=== PATIENT | female | born 1955 | race Caucasian/White ===

== ENCOUNTER 2020-10-29 06:00 | Day surgery (SDC) | payer MEDICARE, BC, SELFPAY ==
[2020-10-29] VITALS (9 sets, daily range): BP systolic 113–146; BP diastolic 60–94; PULSE 57–65; RESP 16–20; TEMP 36.1–37; O2SAT 94–98; BMI 33.8
[2020-10-29] MEDS: Lactated Ringers 1,000 ML 100 ML IV (06:55)
--- NOTE | 2020-10-29 07:00 | RAD_ITS ---
STUDY: X-RAY - RIGHT ANKLE REASON FOR EXAM: ORIF right ankle fracture. TECHNIQUE: 16 intraoperative images of the ankle. COMPARISON: None. FINDINGS: There is an intramedullary pin in the distal fibula and 2 orthopedic screws in the medial malleolus. 419 seconds of fluoroscopy time was used. Electronically Signed: King Almeida MD at 11:57 EST Tel , Service support , RAD/Ankle min 3 Views
[2020-10-29] MEDS: Cefazolin 2 GM in 0.9% Normal Saline 100 ML IV (07:44)
--- NOTE | 2020-10-29 10:05 | RAD_ITS ---
STUDY: X-RAY - RIGHT ANKLE REASON FOR EXAM: Postop right ankle fracture. TECHNIQUE: 3 view(s) of the ankle. COMPARISON: Intraoperative images obtained earlier the same day. FINDINGS: There is an orthopedic pin transfixing a distal fibular fracture in anatomical alignment and position. There are 2 orthopedic screws transfixing a medial malleolar fracture in anatomical alignment and position. Normal tibiotalar articulation and ankle mortise. There is a small plantar calcaneal enthesophyte. The visualized subtalar, talonavicular, calcaneocuboid and tarsal articulations are normal. There is an overlying cast. RAD/Ankle min 3 Views IMPRESSION: Status post ORIF of distal fibular and medial malleolar fractures. Electronically Signed: King Almeida MD at 15:14 EST Tel , Service support ,
--- NOTE | 2020-10-29 10:08 | PCM.DC.ORTHO ---
Discharge Diet: Light diet - advance as tolerated Discharge Activity: May Not Drive, May Not Shower, Use Walker, Use Crutches Weight Bearing Status: No weight bearing Keep extremity elevated above heart level: Right Leg Additional Activity Instructions:: 1. Keep dressing to right leg clean, dry, intact. Do not get dressing wet. Do not remove dressing. If get dressing wet, call office for further instruction. I recommend sponge bathing at this time. 2. Ice around right knee 30 minutes every hour as needed for the pain. 3. Elevate right foot above level of heart as often as possible until further instructed. 4. Begin taking doxycycline 100 mg starting tomorrow, October 30, 2020 twice a day as instructed on bottle. 5. Begin taking Aspirin 81 mg starting tomorrow, October 30, 2020 twice a day. 6. Begin taking Eads/percocet as needed starting today, October 29, 2020. Use Zofran prescription as needed for nausea. You may supplement pain medication with Tylenol (acetaminophen). Do not take more than 3000mg of acetaminophen in a 24 hour period. 7. No walking/standin on right foot. Use crutches/wheelchair/knee scooter for assistance. 8. Follow up with Dr. Cardenas on 11/04/2020 as previously scheduled. Call your doctor if your incision/area has: Sudden Increased Bleeding, Increased Pain/ Swelling Call your doctor if you observe: Fever of 101 or Higher, Coldness, Increased Pain, Inability to have a bowel movement, Shortness of breath, Chest pain, Increased palpitations (irregular heartbeat), Calf discomfort, Uncontrolled pain Cleanse incision/area with: Keep Dressing Clean & Dry Allergies/Adverse Reactions: Allergies amlodipine Allergy (Verified 10/23/20 09:02) Itching pineapple Allergy (Verified 10/23/20 09:02) Swelling codeine Adverse Reaction (Verified 10/23/20 09:02) PT UNSURE OF REACTION morphine Adverse Reaction (Verified 10/23/20 09:02) PT UNSURE OF REACTION Medications to take at Discharge Albuterol Inhaler [Ventolin Hfa (SP)] 1 - 2 puff INHALATION Q4H PRN PRN 10/23/20 Fluticasone/Vilanterol [Breo Ellipta 200-25 Mcg INH] 1 ea IH DAILY 10/23/20 Hydrochlorothiazide [Hctz] 25 mg PO DAILY 10/23/20 Orders to be completed after discharge: Partial Thromboplast Time Time Frame: 2 Days, Facility: [facility], Location: Laboratory Prothrombin Time w/INR Time Frame: 2 Days, Facility: [facility], Location: Laboratory Primary Care Physician: Orion Waite MD [Primary Care Provider] - Test Results: Test results from this visit will be discussed in further detail at your follow-up appointment, if applicable. Please Follow Up With: Karl Cardenas DPM When: on 11/04/2020 as previously scheduled Proposed Discharge Date: 10/29/20
--- NOTE | 2020-10-29 10:12 | PCM.OPRPT ---
Problem List (1) Fracture of ankle, trimalleolar, right, closed Status: Acute Qualifiers: Encounter type: initial encounter Qualified Code(s): S82.851A - Displaced trimalleolar fracture of right lower leg, initial encounter for closed fracture Report of Operation Date of Procedure: 10/29/20 Pre-Operative Diagnosis: 1. Right ankle trimalleolar fracture, closed Post-Operative Diagnosis: 1. Right ankle trimalleolar fracture, closed Surgery/Procedure Performed:: open reduction with internal fixation right ankle trimalleolar fracture Description of Surgical Findings:: Consistent with diagnosis. Reduction of deformities achieved and held with internal fixation. paper bag machine operator: Cristina TROY Type of Anesthesia:: Block,Regional - a popliteal and adductor canal block given to right lower extremity pre-operatively, Spinal/Supplemental Anesthesiologist: Jovi Early Special Medications: 2 g of Ancef given preoperatively Specimen's removed: None Drains: None Estimated Blood Loss (mL): 10 Description of Procedure: Pathology: None Anesthesia: Spinal and MAC with a popliteal and adductor canal block in the right lower extremity preoperatively. Hemostasis: Pneumatic thigh tourniquet placed at the level of the right thigh at 275 mmHg for 84 minutes Estimated blood loss: 10 mL Materials: 1. Arthrex 3.0 mm x 130 mm left fibula lock nail. 2. Arthrex 2.7 x 14 mm cortical screws. 3. Arthrex 4.0 x 40 mm cancellous short thread screw x 2 5. Size 0 Vicryl. 6. Size 2-0 Vicryl. 7. Size 3-0 Vicryl. 8. Size 3-0 nylon Genitals: None Complications: Due to increased postoperative complications with a bigger incision and her bones not holding the internal fixation, it was determined that the intramedullary nail of the fibula would be used. Patient: Stable Indications: Patient is a 65-year-old female with multiple medical problems who suffered a right ankle injury while at home on the evening of October 15, 2020. After verbal questioning, patient states that she was walking down her stairs, and missed the last step. She states that she landed on her right ankle and it twisted inward. Patient felt immediate pain in her right ankle, and did notice a deformity. She was unable to bear weight after the injury. Patient presented to the emergency department after the injury for further evaluation where she was instructed that she suffered a right ankle trimalleolar fracture. Closed reduction was then performed, patient was then placed in a posterior splint. Patient initially followed up with me on Wednesday, October 21, 2020 for further evaluation. At that time, significant edema was noted around the right ankle. I discussed with the patient that she does have a right ankle trimalleolar fracture with ankle joint dislocation and ligamentous injury. I discussed all these terms in detail. I discussed conservative and surgical interventions for this. Conservative therapy would include casting and a below the knee cast. I discussed the risks and benefits of conservative therapy, including but not limited to delayed or nonhealing bone, DVT, early onset arthritis, continued pain, decreased function of limb. I discussed surgical intervention with the patient, which would include an open reduction with internal fixation of the right ankle trimalleolar fracture. I discussed the risks and benefits of surgical intervention, including but not limited to delayed or nonhealing wounds, delayed or nonhealing bone, DVT, infection, decreased function of limb, continued pain, damage to surrounding structures, loss of limb, loss of life. All the patient questions were answered to her satisfaction and all of her concerns were addressed. No guarantees were made as to the outcome of the procedure. Patient understood all aspects of the procedure. Due to the deformity that was present, I recommended surgical intervention. Patient was agreeable to surgical intervention at that time. After reviewing the soft tissue of the ankle, there was significant swelling with loss of skin lines. No fracture blisters were present. Due to the swelling that was present, I determined that the surgery would need to be delayed. A CT scan was ordered of right ankle for preoperative planning along with preoperative blood work, EKG, chest x-ray. I next saw the patient on 10/28/2020. At that time there was a significant reduction in swelling. I then showed the patient her x-rays along with her CT scan. I discussed conservative and surgical interventions for this once again, along with the risks and benefits. All the patient questions were answered to her satisfaction and all of her concerns were addressed. No guarantees were made as to the outcome of the procedure. Patient understood all aspects of the procedure. Due to the deformity that was present, I recommended surgical intervention. Patient was agreeable to surgical intervention at that time, and consent was then signed by the patient. Surgery was planned for today, October 29, 2020. Operative report: Before the patient was brought to the operating room, I discussed the risks and benefits of surgical intervention once gain. These include but not limited to delayed or nonhealing wounds, delayed or nonhealing bone, DVT, infection, decreased function of limb, continued pain, damage to surrounding structures, loss of limb, loss of life. All the patient questions were answered to her satisfaction and all of her concerns were addressed. No guarantees were made as to the outcome of the procedure. Patient understood all aspects of the procedure, and was agreeable to proceed with the surgical intervention. Before the patient was brought to the operating room, the anesthesiologist administered a popliteal and adductor canal block to the right lower extremity. Patient was then brought to the operating room and placed on the operating table in supine position. After a timeout, once general anesthesia was obtained and the anesthesiologist took control the airway and the IV access, all pressure points were well padded. Pre-operative Ancef 2 grams was administered. A well-padded pneumatic thigh tourniquet was placed the level of the right thigh. The right foot, ankle, leg were then scrubbed, prepped, draped in the usual sterile manner. At this time, radiograph evaluation was used to determine the distal tip of the lateral malleolus, level of the fibular fracture, distal tip of the medial malleolus, ankle joint line, syndesmosis line, and medial malleoli fracture. These were all marked on the patient. Next, the right lower extremity was elevated and exsanguinated via an Esmarch and inflation of the pneumatic thigh tourniquet was performed to 275 mmHg. Attention was then directed to the lateral aspect of the right fibula at the level of the fibular fracture. At this time, a linear longitudinal incision was made starting at the distal aspect of the level of the fibula fracture extending proximally to the proximal aspect of the fibular fracture. This incision was approximately 2 cm in length. This incision was deepened utilizing sharp and blunt dissection. Care was taken to retract all vital neural and vascular structures. All bleeders were cauterized and ligated as necessary. Next, a linear periosteal incision was made in line with the original skin incision. The periosteal and capsular structures were then reflected anteriorly and posteriorly, thus exposing the fibula fracture the operative site. At this time, a curette was used to remove any fibrous tissue contained within the surgical site. Surgical site was irrigated copious amounts of normal sterile saline. Next, a reduction was performed of the fibular fracture and this reduction was held via temporary fixation. Radiograph evaluation was then performed. The fibula fracture was noted to be reduced when compared to preoperative assessment. The fibula was noted to be out to length at this time, and the lateral ankle joint mortise was noted to be intact. Attention was then directed to a portion 2 cm distal to the distal tip of the lateral malleolus. At this time, live radiographic evaluation was used to insert the K wire for the intramedullary nail through the distal tip of the fibula extending through the midshaft of the fibula. Multiple radiographic views were used to determine the level of this K wire. Once adequate positioning of this K wire was had, a stab incision was made at the K-wire/skin junction and the reamer was used to perform reaming of the intramedullary canal of the fibula. Once adequate preparation was had of the medullary canal of the fibula, the Arthrex fibular nail was placed into the surgical site into the medullary canal of the fibula. Multiple radiographic views were used to determine exact positioning of the fibular nail. Once adequate positioning was had, this was held via temporary fixation. The proximal fibular nail was held in place via the tongs that were released in standard fashion. Stab incision were made for the distal screws, and the distal portion of the fibular nail was held utilizing the 2.7 cortical screws. Radiographic evaluation was performed to determine exact positioning of the screws and to make sure that they were contained within the fibular nail. Once adequate positioning of this nail was had, the bowman for the nail was removed along with temporary fixation of the fracture. Radiograph evaluation was then performed. The fibular nail was noted to be contained within the intramedullary canal of the fibula. It was noted to not be shifted and noted to hold the fibula fracture in the correct the reduced position. The distal cortical screws noted to be well contained within the fibular nail, and the proximal tongs are noted to be released. The fibula was noted to be out to length at this time. At this time, live radiograph evaluation was used to perform the cotton and hook test to evaluate the syndesmosis. No widening at the distal syndesmosis was noted, and this was deemed to be stable. It was determined that no fixation would be needed. The tibiofibular overlap was noted to be within normal limits. Attention was then directed to the medial aspect of the right ankle near the medial malleolus. At this time, a curvilinear incision was made starting at the level of the medial malleolus fracture extending distally and anteriorly to the distal tip of the medial malleolus. The incision was approximately 1.5 cm in length. This incision was deepened utilizing sharp and blunt dissection. Care was taken to retract all vital neural and vascular structures. All bleeders were cauterized and ligated as necessary. At this time, a portion of the deltoid ligament was incised in a similar fashion to the skin incision. The deltoid ligament was then reflected anteriorly and posteriorly, thus exposing the medial malleolus fracture at the operative site. At this time, reduction of the medial malleolus fracture was had and was held in place utilizing the K wires for the cannulated screw. Radiograph evaluation was then performed. The medial malleolus fracture was noted to be reduced when compared to preoperative assessment and the K wires were noted to be well contained within the medullary canal of the tibia. At this time, both of these K wires were drilled in standard fashion and a 4-0 by 40 mm and a 4-0 by 40 mm cannulated short thread screw was placed over the K wires and inserted in standard fixation. Of note during insertion of the screws was adequate compression of the medial malleolar fracture. Furthermore, no shifting of the medial malleolar fracture occurred during insertion of the screws. Once the screws were fully inserted, the K wire was then removed. Radiograph evaluation was then performed. The medial malleolus fracture was noted to be reduced when compared to preoperative assessment. At this time, radiograph evaluation was used to assess the posterior malleolus fracture. The posterior malleolus was noted to be reduced when compared to preoperative assessment. It was noted to be back in anatomical position. Furthermore, it appeared to be less than 25% of the articulating surface of the ankle. Due to this, it was determined that internal fixation would not be needed. Radiograph evaluation was used to assess the ankle joint once again. The fibula was noted to be out to length at this time and the fracture was noted to be reduced when compared to preoperative assessment. The intramedullary nail was noted to be contained within the fibula. The cotton and hook test were performed once again, and the syndesmosis was deemed stable at this time. The medial malleolus fracture was noted to be reduced when compared to preoperative assessment, and the hardware was noted to hold the medial malleolus fracture in the correct the reduced position. The ankle joint mortise was noted to be intact at this time. The posterior malleolus fracture was reduced. The fibula is noted to be out to length at this time. Each surgical site is irrigated with irrisept and a copious amounts normal sterile saline. The pneumatic thigh tourniquet was then released and a prompt hyperemic response noted to the entirety of the right lower extremity. For the medial surgical incision, the deltoid ligament was reapproximated and coapted utilizing size 0 Vicryl. The subcutaneous tissue was reapproximated and coapted utilizing size 2-0 Vicryl and 3-0 Vicryl. The skin was reapproximated and coapted utilizing size 3-0 nylon in a simple interrupted and horizontal mattress fashion. For the lateral surgical sites, the periosteal and capsular structures were reapproximated and coapted using size 0 vicryl and 2-0 vicryl. The subcutaneous tissues were reapproximated and coapted utilizing size 0 Vicryl, 2-0 Vicryl, 3-0 Vicryl. The skin was reapproximated and coapted utilizing size 3-0 nylon in a simple interrupted and horizontal mattress fashion. Each surgical site was then dressed with Betadine soaked gauze, and a dry sterile dressing consisting of 4 x 4 gauze, ABD pads, wrapped with Kerlix. The right foot and ankle were then wrapped with an Sanjay bandage. Next, a stockinette was placed over the right lower extremity. Cast padding was wrapped from the metatarsal heads extending proximally to the level just distal to the tibial tuberosity. A posterior splint was fashioned to the right lower extremity and was adhered to the right lower extremity utilizing Sanjay bandages. Care was taken to make sure the foot and ankle held in neutral position as the posterior splint dried. Neurovascular status was assessed at the end of the application indeed intact the right lower extremity. The patient tolerated anesthesia and procedure well and was transported to the PACU with vital signs stable and neurovascular status intact to right lower extremity. After period of postoperative monitoring, patient will be discharged home with written and oral instructions for wound care and follow-up. - Complications None - Admit VTE Documentation VTE Present on Admission: No - ASA 81mg BID starting 10/30/2020 for postoperative DVT prophylaxis VTE Mechan Device Prophylaxis: SCD's VTE Pharm Prophylaxis ordered?: Yes
== END 2020-10-29 14:29 | disposition home or self-care (01) ==
LOC: SDC 06:05 → AC 06:07
PROVIDERS: PCP Family Medicine; Referring Provider Podiatrist Foot & Ankle Surgery; Visit Provider Podiatrist Foot & Ankle Surgery
PROC: (CPT 27822; principal; 2020-10-29 07:10)
DX: S82.851A Displaced trimalleolar fracture of right lower leg, initial encounter for closed fracture (principal); W10.8XXA Fall (on) (from) other stairs and steps, initial encounter; Y93.01 Activity, walking, marching and hiking; Y92.008 Other place in unspecified non-institutional (private) residence as the place of occurrence of the external cause; J45.909 Unspecified asthma, uncomplicated; R60.0 Localized edema; I10 Essential (primary) hypertension; Z79.899 Other long term (current) drug therapy
CPT/HCPCS: 27822; 64447; 73610; 76000; C1713; C1776; J7120; J2405

== ENCOUNTER → 2021-04-20 14:44 | Outpatient (CLI) | payer MEDICARE, BC, SELFPAY ==
[2021-03-23 06:46] VITALS: BMI 33.0
[2021-04-20 15:14] LABS: Absolute Lymphocyte Count 2.62 X10^3/uL (0.83-4.51); Absolute Neutrophil Count 6.8 X10^3/uL (2.0-7.7); Basophil# 0.03 X10^3/uL; Basophil% 0.3 % (0-1); Eosinophil# 0.08 X10^3/uL; Eosinophils% 0.8 % (0-5); Hematocrit 41.1 % (37-47); Hemoglobin 13.1 g/dL (12.0-15.0); Lymphocyte # 2.62 X10^3/ul (0.83-4.51); Lymphocyte % 25.9 % (19-41); Mean Corp Hgb Conc 31.9 g/dL (32-36); Mean Corpuscular Hgb 28.4 pg (27.0-32.0); Mean Corpuscular Volume 89.2 fL (81-99); Mean Platelet Vol. 10.3 fl (6.2-12.0); Monocyte# 0.57 X10^3/uL; Monocyte% 5.6 % (0-10); NRBC Flagged by Analyzer 0 % (0-5); Neutrophil # 6.76 X10^3/uL (2.7-7.7); Platelet Count 306 K/mm3 (150-450); RBC Distribution Width CV 13.1 % (11.6-14.6); RBC Distribution Width SD 42.4 fl (35.1-43.9); Red Blood Count 4.61 M/mm3 (4.2-5.4); White Blood Count 10.1 K/mm3 (4.4-11.0)
[2021-04-26 03:06] LABS: Aspirgillus flavus Negative (Neg:<1:1); Aspirgillus fumigatus Negative (Neg:<1:1); Aspirgillus niger Negative (Neg:<1:1)
[2021-04-27 11:25] LABS: Immunoglobulin E 60 IU/mL (6-495)
== END ==
PROVIDERS: PCP Orthopaedic Surgery; Referring Provider Internal Medicine Critical Care Medicine; Visit Provider Internal Medicine Critical Care Medicine
DX: J45.991 Cough variant asthma (principal)
CPT/HCPCS: 36415; 82785; 85025; 86003; 86606